=== PATIENT | male | born 2000 | race American Indian/Alaskan Native ===

== ENCOUNTER 2019-03-11 23:37 | Emergency (ER) | payer SELFPAY ==
[2019-03-12 00:30] VITALS: BP 114/67
== END 2019-03-12 01:37 | disposition left against medical advice (07) ==
LOC: ED 23:37
DX: Z53.21 Procedure and treatment not carried out due to patient leaving prior to being seen by health care provider (principal)

== ENCOUNTER 2020-06-11 21:26 | Emergency (ER) | payer SELFPAY ==
[2020-06-11 22:25] VITALS: BP 129/73
[2020-06-11 23:56] LABS: Hematocrit 42.9 % (35.5-45.6); Hemoglobin 14.4 gm/dl (11.8-15.2); Mean Corpuscular HGB Conc 34 % (32-34); Mean Corpuscular Volume 95 fl (84-94); Platelet Count 273 K/mm3 (140-440); Red Blood Count 4.53 M/mm3 (3.65-5.03); Red Cell Distribution Width 13.1 % (13.2-15.2)
[2020-06-12 00:06] LABS: Alanine Aminotransferase 26 units/L (7-56); Albumin 5.3 g/dL (3.9-5); BUN/Creatinine Ratio 6; Blood Urea Nitrogen 5 mg/dL (9-20); Calcium 9.5 mg/dL (8.4-10.2); Hemolysis Index 11
--- NOTE | 2020-06-12 02:58 | Emergency Department Report ---
ED Medical Clearance HPI - General Chief complaint: Medical Clearance Stated complaint: DRUG USE Source: EMS Mode of arrival: Ambulatory - History of Present Illness Initial comments: Patient is a 20-year-old -[place] male with a history of chronic bronchitis who presents to the ED for evaluation after a being brought by EMS at the insistence of his family. Patient states that he just returned from a trip in [place] where he drank a lot of alcohol and also used illegal drugs and some [id number] "energy tablets and capsules" that he had purchased at a gas station in [place]. Patient states that when he arrived back home about 12 hours ago, his family noticed that he was unusually agitated and when he told him what happened in [place], the family insisted on him being evaluated in the hospital. Patient himself denies suicidal or homicidal ideation, hallucination, chest pain, shortness of breath, dizziness, syncope, nausea and vomiting, abdominal pain, fever, chills, headache, seizures or traumatic injury and fall. MD Complaint: medical clearance request, other -: Sudden, hour(s) (2) Reason for Medical Clearance: intoxication, psychiatric condition Place: home Alledged Intoxication: Yes Compliant with Home Medications: No (Not on any medication) Traumatic Symptoms: denies traumatic injury Associated Symptoms: denies: chest pain, shortness of breath, palpitations, diaphoresis, denies other symptoms, confusion, cough, fever/chills, headaches, anorexia, malaise, nausea/vomiting, rash, seizure, syncope, weakness Treatments Prior to Arrival: none Home medications: Home Medications Medication Instructions Recorded Confirmed Last Taken Fluticasone Propionate [Flonase] 100 mcg NS QDAY 07/11/13 07/11/13 Unknown Loratadine (Nf) [Claritin] 10 mg PO DAILY 07/11/13 07/11/13 Unknown Allergies/Adverse reactions: Allergies Allergy/AdvReac Type Severity Reaction Status Date / Time No Known Allergies Allergy Verified 07/11/13 21:02 ED Review of Systems ROS: Stated complaint: DRUG USE Other details as noted in HPI Constitutional: malaise. denies: chills, fever Eyes: denies: eye pain, eye discharge, vision change ENT: denies: ear pain, throat pain Respiratory: denies: cough, shortness of breath, wheezing Cardiovascular: denies: chest pain, palpitations Endocrine: no symptoms reported Gastrointestinal: denies: abdominal pain, nausea, diarrhea Genitourinary: denies: urgency, dysuria Musculoskeletal: denies: back pain, joint swelling, arthralgia Skin: denies: rash, lesions Neurological: denies: headache, weakness, paresthesias Psychiatric: anxiety. denies: depression, auditory hallucinations, visual hallucinations, homicidal thoughts, suicidal thoughts Hematological/Lymphatic: denies: easy bleeding, easy bruising ED Past Medical Hx - Past Medical History Previous Medical History?: Yes Additional medical history: bronchitis - Surgical History Past Surgical History?: Yes Additional Surgical History: t&a. tonsillectomy - Social History Smoking Status: Current Every Day Smoker Substance Use Type: Alcohol, Marijuana - Medications Home Medications: Home Medications Medication Instructions Recorded Confirmed Last Taken Type Fluticasone Propionate [Flonase] 100 mcg NS QDAY 07/11/13 07/11/13 Unknown History Loratadine (Nf) [Claritin] 10 mg PO DAILY 07/11/13 07/11/13 Unknown History ED Physical Exam - General Limitations: No Limitations General appearance: alert, in no apparent distress, anxious - Head Head exam: Present: atraumatic, normocephalic, normal inspection - Eye Eye exam: Present: normal appearance, PERRL, EOMI. Absent: scleral icterus, conjunctival injection, periorbital swelling, periorbital tenderness Pupils: Present: normal accommodation - ENT ENT exam: Present: normal exam, normal orophraynx, mucous membranes moist, TM's normal bilaterally, normal external ear exam - Neck Neck exam: Present: normal inspection, full ROM - Respiratory Respiratory exam: Present: normal lung sounds bilaterally. Absent: respiratory distress, wheezes, rales, stridor, chest wall tenderness, accessory muscle use, decreased breath sounds, prolonged expiratory - Cardiovascular Cardiovascular Exam: Present: regular rate, normal rhythm, normal heart sounds. Absent: systolic murmur, diastolic murmur, rubs, gallop - GI/Abdominal GI/Abdominal exam: Present: soft, normal bowel sounds. Absent: tenderness, guarding, hyperactive bowel sounds, hypoactive bowel sounds - Extremities Exam Extremities exam: Present: normal inspection, full ROM, normal capillary refill - Back Exam Back exam: Present: normal inspection, full ROM. Absent: tenderness, CVA tenderness (R), CVA tenderness (L), muscle spasm, paraspinal tenderness, vertebral tenderness - Neurological Exam Neurological exam: Present: alert, oriented X3, CN II-XII intact, normal gait, reflexes normal - Psychiatric Psychiatric exam: Present: normal affect, anxious, flat affect. Absent: agitated, manic, homicidal ideation, suicidal ideation - Skin Skin exam: Present: warm, dry, intact, normal color. Absent: rash ED Course Vital Signs 06/11/20 22:06 Temperature 99.1 F Pulse Rate 79 Respiratory 18 Rate Blood Pressure 129/73 O2 Sat by Pulse 100 Oximetry ED Medical Decision Making - Lab Data Result diagrams: 06/11/20 23:09 06/11/20 23:09 - Medical Decision Making This is a 20-year-old -[place] male with a history of chronic bronchitis who presents to the ED for evaluation after a being brought by EMS at the insistence of his family. Patient states that he just returned from a trip in [place] where he drank a lot of alcohol and also used illegal drugs and some [id number] "energy tablets and capsules" that he had purchased at a gas station in [place]. Patient states that when he arrived back home about 12 hours ago, his family noticed that he was unusually agitated and when he told him what happened in [place], the family insisted on him being evaluated in the hospital. In the ED, patient is alert and oriented x3 and is not in distress but anxious during triage and and on physical exam. Lab test results were reviewed and are all nonactionable. Patient is fully interactive, answering questions appropriately, is not suicidal or homicidal nor is he having any hallucinations. All lab test results were reviewed and are all nonactionable except for urine drug screen which was positive for THC. Patient was therefore discharged home after the medical clearance and advised to follow- up with his primary care physician in 5 to 7 days for reevaluation or return to the ED immediately if symptoms get worse. - Differential Diagnosis Substance abuse, alcohol abuse, anxiety ED Disposition Clinical Impression: Anxiety as acute reaction to exceptional stress Disposition: DC-01 TO HOME OR SELFCARE Is pt being admited?: No Does the pt Need Aspirin: No Condition: Stable Additional Instructions: All lab test results were reviewed and are all nonactionable. Therefore follow- up with your primary care physician in 5 to 7 days for reevaluation. Return to the ED immediately if symptoms get worse. Referrals: [facility] [Provider Group] - 3-5 Days Time of Disposition: 03:00 Print Language: [id number]
[2020-06-12 04:11] LABS: Amphetamine Screen,Urine PRESUMPTIVE NEGATIVE; Benzodiazepines Screen,Urine PRESUMPTIVE NEGATIVE; Cannabinoid Screen,Urine PRESUMPTIVE POSITIVE; Cocaine Screen,Urine PRESUMPTIVE NEGATIVE; Methadone Screen,Urine PRESUMPTIVE NEGATIVE; Opiate Screen,Urine PRESUMPTIVE NEGATIVE
[2020-06-12 05:43] LABS: Bilirubin,Urine Small (Negative); Color,Urine Amber (Yellow)
[2020-06-12 05:44] LABS: Blood,Urine Negative (Negative); Mucus,Urine 3+ /HPF; RBC,Urine < 1.0 /HPF (0.0-6.0)
[2020-06-12 05:47] LABS: Anisocytosis Few; Target Cells Few; Total Cells Counted 100
[2020-06-12 05:48] LABS: Burr Cells Few; Platelet Estimate Consistent w Auto
[2020-06-12 06:11] LABS: Ictotest,Urine Negative (Negative)
== END 2020-06-12 03:58 | disposition home or self-care (01) ==
LOC: ED 21:26
DX: F41.9 Anxiety disorder, unspecified (principal); F43.9 Reaction to severe stress, unspecified; F17.200 Nicotine dependence, unspecified, uncomplicated; Z79.899 Other long term (current) drug therapy
CPT/HCPCS: 36415; 80053; 80307; 80320; 81001; 84443; 85007; 85025; 99283; G0480